=== PATIENT | female | born 1935 | race Caucasian/White ===

== ENCOUNTER 2016-08-05 15:00 | Inpatient (IN) | payer MEDICARE, OTHER ==
[~2016-08-05] VITALS: Ht 154.9 cm; Wt 57.6 kg
--- NOTE | ~2016-08-05 | ENPV ---
Vascular Lower Extremities DVT Study Procedure Demographics Patient Name YOSELYN MCLAIN Date of Study 08/07/2016 Patient Number [id number] Gender Female Date of 1935 Age 80 Visit Number [id number] Height 61 Accession Number [id number] Weight 127 Referring Agnieszka Dominguez MD Interpreting Faisal Akhtar MD Physician Physician Physician Ordering Agnieszka Dominguez Sausage Machine Operator Physician Pediatric Audiologist Michelle Wallace, RT,RVT,RDCS Conclusions Summary Normal venous duplex examination of the legs bilaterally with normal venous Doppler signals noted throughout. No evidence of thrombophlebitis is noted bilaterally in the deep and superficial veins of the legs. Small calf thrombi cannot be excluded. Procedure Type of Study: Veins:Lower Extremities DVT Study, Venous Duplex Lower Extremity Bilateral. Appropriate Use Criteria:9 Patient Status:Routine. Study Location:Inpatient Portable. Technical Quality:Adequate visualization. - Preliminary reported to:HELEN Crespo. Velocities are measured in cm/s ; Diameters are measured in cm Right Lower Extremities DVT Study Measurements Right 2D and Doppler Measurements + + + + +------+------+ + !Location !Visualized!Compressibility!Thrombosis!Signal!Reflux!Reflux ! ! ! ! ! ! ! !(sec) ! + + + + +------+------+ + !GSV Thigh !Yes !Yes !None !Phasic!No ! ! + + + + +------+------+ + !Common !Yes !Yes !None !Phasic!No ! ! !Femoral ! ! ! ! ! ! ! + + + + +------+------+ + !Prox !Yes !Yes !None !Phasic!No ! ! !Femoral ! ! ! ! ! ! ! + + + + +------+------+ + !Mid Femoral!Yes !Yes !None !Phasic!No ! ! + + + + +------+------+ + !Dist !Yes !Yes !None !Phasic!No ! ! !Femoral ! ! ! ! ! ! ! + + + + +------+------+ + !Popliteal !Yes !Yes !None !Phasic!No ! ! + + + + +------+------+ + !Gastroc !Yes !Yes !None !Phasic!No ! ! + + + + +------+------+ + !PTV !Yes !Yes !None !Phasic!No ! ! + + + + +------+------+ + !Peroneal !Yes !Yes !None !Phasic!No ! ! + + + + +------+------+ + Left Lower Extremities DVT Study Measurements Left 2D and Doppler Measurements + + + + +------+------+ + !Location !Visualized!Compressibility!Thrombosis!Signal!Reflux!Reflux ! ! ! ! ! ! ! !(sec) ! + + + + +------+------+ + !GSV Thigh !Yes !Yes !None !Phasic!No ! ! + + + + +------+------+ + !Common !Yes !Yes !None !Phasic!No ! ! !Femoral ! ! ! ! ! ! ! + + + + +------+------+ + !Prox !Yes !Yes !None !Phasic!No ! ! !Femoral ! ! ! ! ! ! ! + + + + +------+------+ + !Mid Femoral!Yes !Yes !None !Phasic!No ! ! + + + + +------+------+ + !Dist !Yes !Yes !None !Phasic!No ! ! !Femoral ! ! ! ! ! ! ! + + + + +------+------+ + !Popliteal !Yes !Yes !None !Phasic!No ! ! + + + + +------+------+ + !Gastroc !Yes !Yes !None !Phasic!No ! ! + + + + +------+------+ + !PTV !Yes !Yes !None !Phasic!No ! ! + + + + +------+------+ + !Peroneal !Yes !Yes !None !Phasic!No ! ! + + + + +------+------+ + Signature dtt: LOUISA RODRIGUEZ dtd: 08/07/16 1252 Physician Aníbal Paz
--- NOTE | ~2016-08-05 | CON ---
PATIENT'S NAME: YOSELYN MCLAIN [facility] AGE: 80 Y [address] ROOM: [id number] [place], [place] [address] LOCATION: [facility] ADMIT DATE: 08/05/2016 Consultation DISCHARGE DATE: FAMILY PHYSICIAN: Callie Benavides MD ATTENDING PHYSICIAN: Martell Lubin DATE OF CONSULTATION: 08/06/2016 REFERRING PHYSICIAN: Shar Whittaker MD NEUROLOGICAL CONSULTATION DATE AND TIME: 08/06/2016 at 08:40 a.m. CHIEF COMPLAINT/REASON FOR CONSULTATION: Subacute CVA. HISTORY OF PRESENT ILLNESS: This is an 80-year-old female with a previous history of hypertension and Meniere disease, who was transferred to our facility from [place] with newly identified right periventricular ischemic stroke. Her symptoms began on Wednesday. She had some dizziness and a feeling of unwellness. She did contact her primary care provider on Wednesday who went in and had a lab work done and a CT scan. She went back home because this was all normal. Over the course of the day, Wednesday, she developed some worsening facial droop and left-sided weakness. She also noticed she was stumbling around and recontacted her primary care doctor. She was told to have an MRI and was scheduled for . But they did have an opening and she was able to get in on 08/05/2016. The MRI did show an area of ischemia in the right periventricular region. She was forwarded to the emergency department in [place], but because of bed availability, she was transferred to [facility] for evaluation and management of her subacute stroke. She denies any dizziness or headache at this time. She does notice weakness in her left face and left arm. She says it has been unchanged. She denies any blurred vision. No difficulties with speech, chewing, or swallowing. She did eat breakfast and have no issues with that. Denies chest pain, palpitations, heart beat, or abdominal pain. No change in bowel movements or appetite. Denies any numbness or tingling in her extremities. ALLERGIES: NO KNOWN DRUG ALLERGIES. PAST MEDICAL HISTORY: Illnesses: 1. Meniere disease. PATIENT'S NAME: YOSELYN MCLAIN [facility] AGE: 80 Y [address] ROOM: [id number] [place] [address] [facility] ADMIT DATE: 08/05/2016 Consultation DISCHARGE DATE: FAMILY PHYSICIAN: Callie Benavides MD ATTENDING PHYSICIAN: Martell Lubin 2. Hypertension. 3. Ovarian cancer status post chemotherapy and surgery. CURRENT MEDICATIONS: Include: 1. Folate daily. 2. Vitamin D daily. 3. Vitamin B12 daily. 4. Calcium with vitamin D daily. 5. Fish oil daily. FAMILY HISTORY: Significant for cancer in her father who from congestive heart failure. Mother had coronary artery disease. SOCIAL HISTORY: She is and lives in [place]. She is a nonsmoker. Does not drink alcohol. REVIEW OF SYSTEMS: A 14-point review of systems and is negative except as mentioned in the HPI. OBJECTIVE/PHYSICAL EXAMINATION: VITAL SIGNS: Temperature is 97.6, pulse 94, respirations 18, blood pressure is 144/82, and O2 saturations are 98% on room air. GENERAL: This is a pleasant, cooperative, well-groomed female in no acute distress. SKIN: Supple, pink, warm, and dry. HEENT: Normocephalic and atraumatic. Pupils equal, round, and reactive to light and accommodation. Extraocular movements appear intact. NECK: Supple with no nuchal rigidity. No carotid bruits auscultated. CHEST: Her chest wall is symmetrical. HEART: Regular without murmurs. LUNGS: Clear bilaterally. ABDOMEN: Soft, nontender. NEUROLOGIC: She is alert and oriented x3. Cranial nerves 2 through 12 are intact. Her NIH Stroke Scale is as follows: 1. Level of consciousness 0. 2. Month and age 0. 3. Open and close eyes 0. 4. Best gaze 0. 5. Visual field testing 0. 6. Facial paresis is 0. 7. Left arm function 0. 8. Right arm 0. PATIENT'S NAME: YOSELYN MCLAIN [facility] AGE: 80 Y [address] ROOM: [id number] [place] [id number] LOCATION: [facility] ADMIT DATE: 08/05/2016 Consultation DISCHARGE DATE: FAMILY PHYSICIAN: Callie Benavides MD ATTENDING PHYSICIAN: Martell Lubin 9. Left leg 1. 10. Right leg 0. 11. Limb ataxia 1. 12. Sensory 0. 13. Language 0. 14. Dysarthria 0. 15. Extinction, inattention 0, and total score is 2. She does state she had some balance issues when up earlier. LABORATORY DATA AND IMAGING STUDIES: Diagnostics: The MRI from the outside facility was reviewed and did find the right periventricular stroke. ASSESSMENT AND PLAN: 1. Subacute cerebrovascular accident. She has had an MRI. We will continue her workup with an echocardiogram, EKG, and MRA of her neck. We will also get a lipid panel to rule out any risk factors. 2. PT, OT, and speech will be instituted for stroke rehabilitation. I discussed the plan with the patient and she is agreeable to proceed. Thank you for this consultation. If you have any questions, please do not hesitate to contact us. JV DUNBAR APRN FOR FAN JOHNSON MD PP/modl /[id number] P d: 08/07/16 1901 t: 08/16/16 2210, CONSULTATION REPORT
--- NOTE | ~2016-08-05 | HP ---
PATIENT'S NAME: YOSELYN MCLAIN [facility] AGE: 80 Y [address] ROOM: [address] [place], [place] [address] LOCATION: [facility] ADMIT DATE: 08/05/2016 History & Physical DISCHARGE DATE: FAMILY PHYSICIAN: Callie Benavides MD ATTENDING PHYSICIAN: Martell Lubin DATE OF SERVICE: CHIEF COMPLAINT: Subacute cerebrovascular accident. HISTORY OF PRESENT ILLNESS: This 80-year-old white female with a previous history of hypertension and Meniere's disease was transferred to [facility] from [place] with newly identified right periventricular ischemic stroke. Briefly, her symptoms began on Wednesday. She noticed some dizziness and a feeling of unwellness. Symptoms persisted and she contacted primary care provider on Wednesday. She went in and had some lab work as well as CT scan. This all apparently looked okay and she went back home. Over the course of the day on Wednesday, however, she developed some worsening facial droop and left- sided weakness. She noticed that she was stumbling around and recontacted her primary care provider. She was recommended to have an MRI and that was scheduled for . Because of an opening in the Radiology Department, she was able to get in today. The MRI reportedly showed an area of ischemia in the right periventricular region. She was subsequently forwarded to the emergency department in [place]. While she was there, her preliminary evaluation was unremarkable. Because of the lack of bed availability, she was transferred here for definitive evaluation and management of subacute stroke. On her arrival, she reports feeling "good." She denies feeling dizzy presently. She does notice weakness in her left face and also her left arm. It has not changed much in the last couple of days. She denies blurred vision or scotomata. No difficulties with speech, chewing, or swallowing. She did eat breakfast this morning. She did not finish however. She denies chest pain. Denies palpitations, racing heartbeat, or abdominal pain. She stools and voids normally. Denies numbness or tingling in her extremities or any other associated physical or constitutional complaints. ALLERGIES: NO KNOWN DRUG ALLERGIES. ILLNESSES: 1. Meniere's disease. 2. Hypertension. PATIENT'S NAME: YOSELYN MCLAIN [facility] AGE: 80 Y [address] ROOM: [address] [place], [place] [address] LOCATION: [facility] ADMIT DATE: 08/05/2016 History & Physical DISCHARGE DATE: FAMILY PHYSICIAN: Callie Benavides MD ATTENDING PHYSICIAN: Martell Lubin 3. Ovarian cancer, 5 years ago, status post surgery and chemotherapy, a recent checkup at the oncologist's office was "clear.". CURRENT MEDICATIONS: 1. Folate daily. 2. Vitamin D daily. 3. Vitamin B12 daily. 4. Calcium with vitamin D daily. 5. Fish oil daily. FAMILY HISTORY: Significant for cancer in her father who from congestive heart failure. Mother had coronary artery disease. SOCIAL HISTORY: She is and lives in [place]. She is a nonsmoker. Does not drink alcohol. REVIEW OF SYSTEMS: As per HPI. All other organ systems reviewed and are negative. OBJECTIVE: VITAL SIGNS: Temperature 97.8, pulse 95, respirations 18, blood pressure 155/88, and O2 sat 98% on room air. GENERAL: She is very pleasant, cooperative, lying in bed, no acute distress. SKIN: Supple, pink, warm, dry. No obvious rashes. HEENT: Otherwise, normocephalic. Sclerae nonicteric. Pupils equal, round, and reactive to light and accommodation. Extraocular movements appear intact. Nasal turbinates normal in appearance. Oropharynx clear. Mucous membranes are pink and moist. NECK: Supple. Plethoric. No masses or adenopathy. No thyromegaly. No JVD. CHEST: Chest wall is symmetrical. HEART: Regular without murmurs. LUNGS: Clear bilaterally. No wheezes or crackles are heard. ABDOMEN: Soft, nontender. Bowel sounds present. No mass or hepatosplenomegaly. AND RECTAL: Not done. EXTREMITIES: Display no significant clubbing, cyanosis, edema. NEUROLOGICAL: She is alert and oriented x3. Cranial nerves 2 through 12 demonstrate left-sided facial droop, but speech is clear. Sensation appears intact. Strength is 3/5 to 4/5 in the left upper and left lower extremity, 4/5 to 5/5 in the right upper and right lower extremity. DTRs are 1 to 2+ roughly symmetrical. Gait is not observed. LABORATORY AND X-RAY DATA: PATIENT'S NAME: YOSELYN MCLAIN [facility] AGE: 80 Y [address] ROOM: [address] [place], [place] [address] LOCATION: [facility] ADMIT DATE: 08/05/2016 History & Physical DISCHARGE DATE: FAMILY PHYSICIAN: Callie Benavides MD ATTENDING PHYSICIAN: Martell Lubin MRI scan is not available for review, but according to the secondhand report showed a right-sided periventricular ischemic area measuring 12 x 14 mm. A CBC showed a white blood cell count 5.0, hemoglobin 13.3, hematocrit 40, and platelets 188. Chemistries revealed a BUN and creatinine of 16 and 0.88 respectively; sodium and potassium 137 and 3.9; chloride and CO2 104 and 24 respectively; calcium was 4.1; AST and ALT 118 and 21; bilirubin 0.6. Cardiac enzymes revealed the mildly elevated at CPK 227, MB 1.5, and troponin I of less than 0.03. ASSESSMENT AND PLAN: 1. Cerebrovascular accident, ischemic-subacute. She is well outside of the window for consideration of thrombolysis based on the development of symptoms on Wednesday (over 72 hours ago). She is clinically stable and deficits are relatively mild. We will admit to inpatient care. I placed her on the stroke pathway. She already received aspirin in [place]. We will plan to continue aspirin and initiate statin therapy. We will also get an MR angiography to assess her carotid arteries and transthoracic echocardiography in the morning. We will request Neurology evaluation as well as arrange of physical therapy, occupational therapy, and speech therapy evaluations. 2. Essential hypertension, appears stable, and adequately controlled without medical intervention. We will monitor the trend and make adjustments if necessary. 3. Meniere's disease. Currently, asymptomatic, stable. We will follow. 4. Ovarian cancer, status post surgery and chemotherapy. No clinical evidence of recurrent disease. We will just follow clinically. 5. Deep venous thrombosis prophylaxis. We will follow the venous thromboembolism protocol. MD PIYUSH CRYSTAL/jonathan /[id number] 65 HISTORY & PHYSICAL
--- NOTE | ~2016-08-05 | CON ---
PATIENT'S NAME: YOSELYN MCLAIN [facility] AGE: 80 Y [address] ROOM: [place] [address] LOCATION: [facility] ADMIT DATE: 08/05/2016 Consultation DISCHARGE DATE: FAMILY PHYSICIAN: Callie Benavides MD ATTENDING PHYSICIAN: Martell Lubin REFERRING PHYSICIAN: Shar Vidales MD Consult for Dr. Lubin. HISTORY OF PRESENT ILLNESS: This pleasant 80-year-old lady is referred for rehab GIRP evaluation, admitted on 08/05/2016 with slight weakness of the left side, slight left facial droop, and did have evaluation eventually. MRI showed an even area of right periventricular region with ischemic changes. She has history of the followin. Meniere disease or Meniere syndrome. 2. Hypertension. 3. CA of ovary 5 years ago, status post surgery and chemotherapy and has been doing well ever since. At the present time, she is alert, oriented, could not detect any weakness in the left facial muscles at the present time. Tongue and soft palate are moving symmetrical. Her voice is clear and not wet. She can comprehend and express without difficulty. She can see well. No difficulty with her either eyes. No visual cut and/or neglect. She denied any dizziness. No vertigo. No double vision. No headaches. At the present time when examining, she is mildly weaker on the left side in comparison to the right. This lady is also right-handed. So, she is doing fairly nicely at the present time and comfortable. No shortness of breath. No chest pain. At the present time, her vitals are as follow: Blood pressure 146/78, temperature 97.7, pulse 76, respiratory rate 20. She is 5 feet 1 inch tall and weighs 58.0 kg. She can walk without assistive device, but with supervision for about 200 feet without difficulty. Her gait is steady and good. Neurologically intact. Good bowel and bladder control. MEDICATIONS: She is on the following medications: 1. Tylenol. PATIENT'S NAME: YOSELYN MCLAIN [facility] AGE: 80 Y [address] ROOM: [address] [address] LOCATION: [facility] ADMIT DATE: 08/05/2016 Consultation DISCHARGE DATE: FAMILY PHYSICIAN: Callie Benavides MD ATTENDING PHYSICIAN: Martell Lubin 2. Protonix. 3. Aspirin. 4. Lipitor. ASSESSMENT AND PLAN: I feel this lady can go on outpatient basis and can follow with her family physician. However, I have advised her not to drive until she is re- evaluated. I will be happy to follow on her in 2 weeks in my office and she has to, at the present time as much as possible, avoid driving and/or operating any mechanical devices. I will see her in another 2 weeks in my office upon discharge; however, while she is here, I will be following alongside with you. All the above was explained to her. She verbalized understanding and in agreement. SHAR VIDALES MD WMS/modl /[id number] d: 08/06/161921 t: 08/07/16 0821, CONSULTATION REPORT
--- NOTE | ~2016-08-05 | DS ---
PATIENT'S NAME: YOSELYN MCLAIN [facility] AGE: 80 Y [address] ROOM: [place] [address] LOCATION: [facility] ADMIT DATE: 08/05/2016 Discharge Summary DISCHARGE DATE: 08/08/2016 FAMILY PHYSICIAN: Callie Benavides MD ATTENDING PHYSICIAN: Rafael Clifford PRIMARY DIAGNOSES: 1. Subacute right periventricular cerebrovascular accident, thrombotic. 2. Probable patent foramen ovale. 3. Essential hypertension. 4. Dyslipidemia. 5. Left-sided arm and leg weakness. 6. Meniere's disease. OPERATIONS/PROCEDURES: MRA of the neck was performed 08/06/2016 demonstrating no significant stenosis. Echocardiogram was performed 08/06/2016 demonstrating a normal ejection fraction of 60% to 65%, elevated RVSP at 36.3, and bubbles crossing from the right to the left atrium suggesting a PFO or atrial septal defect. HISTORY OF PRESENTING ILLNESS/REASON FOR ADMISSION: Please refer to the H and P dictated 08/05/2016. HOSPITAL COURSE: The patient is admitted to the hospital as noted above with a presumptive diagnosis of cerebrovascular accident evidenced by imaging studies at an outside facility. Briefly, she had presented to her primary care clinic with complaints of left-sided weakness. Initial CT scan was negative, but a followup MRI scan revealed the presence of an ischemic area in the right periventricular region. She was referred here for definitive evaluation and management. She was placed on the Neurotrauma Unit. Routine stroke protocol was followed. Neurology was consulted. Additional imaging studies with MR angiography revealed no evidence for carotid artery stenosis. Echocardiography was essentially unremarkable except for the suggestion of a PFO. We did consider full anticoagulation, but at the recommendation of Neurology, it was suggested that she should just take a full- strength aspirin. No additional cardiac workup was performed and she did not have a GABI transesophageal echocardiogram during this hospital stay. She received physical therapy, occupational therapy, and speech therapy evaluations. Physiatry also consulted and suggested that she could have outpatient therapies. By the end of the third day of her hospital stay, it was felt she would be stable enough for discharge to home on an adjusted PATIENT'S NAME: YOSELYN MCLAIN [facility] AGE: 80 Y [address] ROOM: [place] [address] [facility] ADMIT DATE: 08/05/2016 Discharge Summary DISCHARGE DATE: 08/08/2016 FAMILY PHYSICIAN: Callie Benavides MD ATTENDING PHYSICIAN: Rafael Clifford medication regimen as well as plans for outpatient followup for physical therapy, occupational therapy, and follow up with the primary care provider. DISCHARGE INSTRUCTIONS: Diet cardiac prudent as tolerated. Activities as tolerated. Outpatient Physical Therapy and Occupational Therapy in [place] and also no driving until released by her [employer] company driver Dr. Whittaker. MEDICATIONS: 1. Aspirin 325 mg p.o. daily. 2. Atorvastatin 40 mg p.o. q.h.s. 3. Citracal with D 1 tab p.o. daily. 4. Vitamin D 400 units p.o. daily. 5. Fish oil 1 cap p.o. b.i.d. 6. Vitamin B12 500 mg p.o. daily. 7. Folate daily. 8. Atarax 10 mg p.o. t.i.d. p.r.n. dizziness. FOLLOW UP: She will follow up with primary care provider in 7-10 days. She will follow up with Dr. Whittaker in 2 weeks. CONDITION ON DISCHARGE: Good. Total time spent on discharge process was 45 minutes. RAFAEL CLIFFORD MD AJS/modl /[id number] d: 08/09/16 0140 t: 08/09/16 0830, DISCHARGE SUMMARY
--- NOTE | ~2016-08-05 | ECHO ---
Transthoracic Echocardiography Report (TTE) Demographics Patient Name YOSELYN MCLAIN Date of Study 08/06/2016 Patient Number [id number] Visit Number [id number] Date of 1935 Room Number G6227 Accession Number [id number] Gender Female Age 80 year(s) Referring Kennedy Peralta Salicylic Acid Blender Evin Moore RDCS, Physician RVT Amee Peralta MD Physician Interpreting Jennifer Fitzpatrick [employer] Aide Physician Supervising Ordering Physician Amee Peralta MD, MD/P Nurse Stress Core Driller Helper Conclusions Contractility Score Summary Normal Left Ventricular contractility was noted. Summary The estimated left ventricular ejection fraction is 60-65% with normal internal dimension,wall thickness and WM. Mild mitral regurgitation by color Doppler. Mild mitral annular calcification. Mild tricuspid regurgitation by color Doppler. There is mild pulmonary hypertension. The pulmonary pressure (RVSP) is 36.30 mmHg. Informed consent was obtained, bubble study was done, bubbles crossed to the left atrium suggesting a PFO or ASD. Procedure Type of Study TTE procedure:2D Echocardiogram. Procedure Date Date: 08/06/2016 Start: 01:31 PM Study Location: Inpatient Portable Technical Quality: Adequate visualization Indications:CVA. Appropriate Use Criteria: 9 Patient Status: Routine BP: 148/80 mmHg M-Mode/2D Measurements LV Diastolic Dimension: 3.57 cm LV Systolic Dimension: 1.48 cm LV Septum Diastolic: 0.89 cm LV PW Diastolic: 0.72 cm AO Root Dimension: 3 cm AV Cusp Separation: 1.9 cm RV Diastolic Dimension: 2.89 cm LA Dimension: 2.5 cm LA volume: 42 ml RV Base: 3.63 cm LVOT: 1.8 cm RV Mid: 2.13 cm LVOT VTI: 29.6 cm RV Length: 4.13 cm LV Stroke volume: 75.28 ml TDI-S': 12.3 cm/s Doppler Measurements AV Peak Velocity: 1.25 m/s MV Peak E-Wave: 0.91 m/s AV Peak Gradient: 6.25 mmHg MV Peak A-Wave: 1.2 m/s AV Mean Gradient: 4 mmHg MV E/A Ratio: 0.76 LVOT Peak Velocity: 1.23 m/s MV P1/2t: 100 msec TR Gradient:28.3 mmHg PV Peak Velocity: 0.77 m/s Estimated RAP:8 mmHg PV Peak Gradient: 2.34 mmHg Estimated RVSP: 36 mmHg Estimated PASP: 36.3 mmHg E' Septal Velocity: 0.04 m/s A' Septal Velocity: 0.12 m/s E' Lateral Velocity: 0.05 m/s A' Lateral Velocity: 0.14 m/s Findings Left Ventricle Normal left ventricle size and function. Right Ventricle Normal right ventricle structure and function. Left Atrium Normal left atrial size. Informed consent was obtained, bubble study was done, bubbles crossed to the left atrium suggesting a PFO or ASD. Right Atrium Normal right atrial size. Mitral Valve Mild mitral regurgitation by color Doppler. Mild mitral annular calcification. Aortic Valve The aortic valve is mildly sclerotic. Tricuspid Valve Mild tricuspid regurgitation by color Doppler. There is mild pulmonary hypertension. The pulmonary pressure (RVSP) is 36.30 mmHg. Pulmonic Valve Normal pulmonic valve structure and function. Pericardial Effusion No evidence of pericardial effusion. Miscellaneous Visualized portions of the aortic root and ascending aorta appear normal in size. Pleural Effusion No evidence of pleural effusion. Contractility Score LV regional wall motion:(0-Non visualized 1-Normal 2-Hypokinesis 3-Akinesis 4-Dyskinesis 5-Aneurysm) Signature dtt: Nanette Rodriguez dtd: 08/06/16 [id number] Physician Self Edit
[2016-08-05] MEDS ORDERED: FISH OIL 1,2001 EACH PO (17:58)
[2016-08-05] MEDS ORDERED: CITRACAL+D(315M1 TAB PO (17:59)
[2016-08-05] MEDS ORDERED: VITAMIN B-12500 MCG PO (17:59)
[2016-08-05] MEDS ORDERED: VITAMIN D-40400 UNIT PO (18:00)
[2016-08-05] MEDS ORDERED: FOLIC ACID1 MG PO (18:00)
--- NOTE | 2016-08-05 19:08 | NUR ---
PATIENT IS A 80 YEAR OLD FEMALE WHO HAD SOME WEAKNESS COME ON SEVERAL DAYS AGO. ON WEDNESDAY NOTICE A SIGNIFICANT DIFFERENCE. WENT TO PRIMARY MD ON WEDNESDAY. THEY DID CT IT WAS NEGATIVE. SCHEDULE MRI TODAY. CAME BACK POSITIVE FOR CVA. BROUGHT BY AMBULANCE HERE FROM [place]. HX OF OVARIAN CANCER 5 YEARS AGO. HAS STRESS INCONTINENCE. NIHSS 2
[2016-08-05] MEDS ORDERED: ATARAX10 MG PO (20:33)
--- NOTE | 2016-08-06 04:27 | NUR ---
Significant Event: The patient is Alert and Oriented x3. Denies Numbness and Tingling. Moves all extremities spontaneously and to command. Left extremities are weaker than the right. NIHSS 3. Up with 1 assist and gaitbelt. Denies Pain. VSS. On room air. Q6H accu checks. PIV to the right forearm saline locked. Lymphodema to the left leg. Bruising to bilateral arms. Cardiac diet. Follow up:
[2016-08-06 07:00] LABS: ALBUMIN 3.2 gm/dL (3.5-5.0); ANION GAP 11.1 (10.0-19.0); BLOOD UREA NITROGEN 12 mg/dL (6-24); CALCIUM 8.9 mg/dL (8.5-10.5); CHLORIDE 113 mMol/L (96-110); CO2 25 mMol/L (22-32); CREATININE 0.8 mg/dL (0.5-1.1); PHOSPHORUS 3.2 mg/dL (2.5-4.9); POTASSIUM 4.1 mMol/L (3.7-5.1); SODIUM 145 mMol/L (135-145)
[2016-08-06 07:03] LABS: ESTIMATED GFR (MDRD EQUATION) > 60
--- NOTE | 2016-08-06 09:14 | NUR ---
CONSULT RECEIVED PER STROKE PROTOCOL. WILL PROVIDE DIET ED PRIOR TO DC APPROPRIATE.
--- NOTE | 2016-08-06 11:49 | NUR ---
Introduced self and role of care management to patient. She lives with her Zoe. She states that she is able to do all her own ADL's. She states that she had been using a walker just the day before going to [facility]. She states that her and family will be able to assist as needed. She plans on returning home on discharge. She denies any needs at this time. Will continue to follow.
--- NOTE | 2016-08-06 16:00 | NUR ---
Significant Event: Patient alert and oriented x3. Denies numbness/tingling. Drags L) foot when walks. Reports feeling "weak" on L) side. Tele on- sinus arrhythmia. Slightly hypertensive, all other VSS on room air. Stress incontinence, brief on. Lymphedema noted to L) leg. Slight bruising to arms. MRA, ECHO done today. IV to R) FA, saline locked. Follow up: VS/neuros q 4 hours. Up with 1PA. Cardiac diet. Accucheks q 6 hours.
--- NOTE | 2016-08-07 04:03 | NUR ---
Significant Event: Pt A&Ox3. Vital signs stable, remains on RA. NIHSS 1; Lt side is minisculely weaker than the Rt. Up with 1PA, FWW, and gaitbelt. Denies pain. Accuchecks q6h, no SSI. PIV to RFA, SL. Lymphodema noted 2+ to LLE. HR SA. Scattered bruising to BUE. Voids per bathroom, does have stress incontinence. Discharge possible today or Wednesday. Follow up: Continue with plan of care
--- NOTE | 2016-08-07 10:16 | NUR ---
Patient is alert and oriented x3. Follows commands and moves spontaneously. Speech is clear. PERRLA. Denies JOHNSON, N/T. Left side of body is slightly weaker. Upper extremities- [place], warm, good cap refill, 2+ pulse, Denies N/T. Left arm has 2+ edema and is slightly weaker than right arm. Legs- [place], warm, good cap refill, 2+ pulse, No Edema. Moves without difficulty. Denies N/T. Left side is slightly weaker than left. NIHSS- Drift to left arm. SA. Bilateral feet are dry. Fatty growth to right calf- open to air, arms have bilateral bruises. Bowel sounds are active. Last BM 08/05. Stress incontinence. Denies Pain. Pleasant and cooperative with cares.
--- NOTE | 2016-08-07 16:12 | NUR ---
Significant Event: Patient is alert and oriented x3. Follows commands. speech is clear. Denies JOHNSON and N/T. PERRLA. Left arm and leg are slightly weaker. NIHSS- 1 r/t left arm drift. Pulses palpable througout. SA. Bowel sounds are active. small BM today. Voids without difficulty- stress incontinence at times. Ambulates with 1 assist, GB and walker. PIV to right FA- SL. at bedside. Pleasant and cooperative with cares. Follow up: Home tomorrow?
--- NOTE | 2016-08-08 05:20 | NUR ---
Shift Summary: Patient can ambulate with standby assist and walker. Has slight left sided weakness. Denies having any pain. To go home today.
[2016-08-08] MEDS ORDERED: LIPITOR40 MG PO (11:27)
[2016-08-08] MEDS ORDERED: ASPIRIN325 MG PO (11:29)
== END 2016-08-08 13:16 | disposition disaster alternative care site (69) | DRG 65 ==
LOC: GNTU 17:19
PROVIDERS: ADMIT Family Medicine
DX: I63.341 Cerebral infarction due to thrombosis of right cerebellar artery (principal); G81.94 Hemiplegia, unspecified affecting left nondominant side; I51.0 Cardiac septal defect, acquired; Q21.1 Atrial septal defect; E78.5 Hyperlipidemia, unspecified; H81.09 Meniere's disease, unspecified ear; I10 Essential (primary) hypertension; Z85.43 Personal history of malignant neoplasm of ovary; Z92.21 Personal history of antineoplastic chemotherapy
CPT/HCPCS: A9577; C9113